=== PATIENT | female | born 1985 | race Caucasian/White ===

== ENCOUNTER 2021-07-09 02:38 | Day surgery (SDC) | payer OTHER, SELFPAY ==
[2021-07-02 13:07] VITALS: BMI 25.1
[2021-07-09 08:42] VITALS: BP 118/80; PULSE 90; RESP 16; TEMP 36.1; O2SAT 100; BMI 33.7
--- NOTE | 2021-07-09 08:52 | PM.HPGS ---
History of Present Illness History of Present Illness Consent: Risks, benefits, and alternatives have been discussed and questions answered. Patient agrees to proceed with procedure. Chief complaint: RICH Narrative: Chelsea Washington is a 35 year old female has been found to have iron deficiency anemia. She was recently in the emergency room where blood work was done. We do not have those results. She denies any abdominal pain or other gastrointestinal symptoms such as nausea, vomiting, severe heartburn, dysphagia anorexia weight loss or significant change in bowel habits. in January hemoglobin is 9.2 when she was in the emergency room with an abscess. A few weeks later was down to 8.3. She was started on iron but has yet to come up. The last 1 I saw was 8.2 . Also, her white blood count was low at 2700. Iron studies were abnormal with iron at 15 with only 6% saturation she denies seeing blood in her stools or having black tarry stools. She does not use NSAIDs. She had been having somewhat heavy periods but throughout all of her 3 pregnancies she had never struggled with anemia. Review of Systems Review of Systems: All systems reviewed & are unremarkable except as noted in HPI and below PMFSH Past Medical History Medical History Anxiety IBS (irritable bowel syndrome) Family History Family History Father Heart disease Diabetes mellitus Skin cancer Mother Diabetes mellitus Hypertension Sibling Heart failure Social History Social History Smoking packs per day: 0.5 Smoking cigarettes per day: 10.0 Years smoked: 3 Smoking pack-years: 1.50 Smoking status: Former smoker Tobacco type: cigarettes Alcohol intake: never Substance use: never Substance use type: does not use Living arrangements: with family Spiritual care concerns: No Meds Home Medications and Allergies Home Medications Medication Instructions Recorded Confirmed Type docusate sodium 100 mg capsule 100 mg PO BID 06/12/21 07/09/21 History ferrous sulfate 142 mg (45 mg 142 mg PO BID tablet 06/12/21 07/09/21 History iron) tablet,extended release sertraline 50 mg tablet 50 mg PO DAILY 06/12/21 07/09/21 History Allergies Allergy/AdvReac Type Severity Reaction Status Date / Time metoclopramide [From Reglan] Allergy Severe Anaphylaxis Verified 07/09/21 08:40 Sulfa (Sulfonamide Allergy Intermediate Unknown Verified 07/09/21 08:40 Antibiotics) Vital Signs Vital Signs - 24 hr 07/09/21 08:42 Temperature 36.1 C L Pulse Rate 90 Respiratory Rate 16 Blood Pressure 118/80 Pulse Oximetry 100 Exam Const: General: alert Orientation/consciousness: patient oriented x3 Resp: Auscultation: clear to auscultation bilaterally Cardio: Rhythm: regular rhythm GI: GI Palp: Yes Soft to palpation and No Tenderness to palpation present (GI) Neuro: General: patient oriented x3 Assessment and Plan Assessment and plan (1) Iron deficiency anemia: Code(s): D50.9 - Iron deficiency anemia, unspecified Status: Acute Assessment and Plan: Colonoscopy with possible biopsy or polypectomy or cautery or injection of substances.
[2021-07-09] MEDS: LACTATED RINGERS 1,000 ML 150 ML IV CONT (08:54)
--- NOTE | 2021-07-09 08:54 | SUR.PREOP ---
Per Dr. Chamberlain no Urine test needed
--- NOTE | 2021-07-09 09:13 | P.PNAN_ITS ---
Anes - Initial Pre Proc Eval Procedure: Operation Date: 07/09/21 10:00 Proposed Procedures p Colonoscopy - Sung Navarro MD Date/Time: 07/09/21 09:13 Surgeon: Sung Navarro MD Pre Op Diagnosis: RICH Patient Data Age: 35 Gender: F Height: 1.55 m Weight: 81.1 kg Last Vital Signs Temp 97 F L 07/09/21 08:42 Pulse 90 07/09/21 08:42 Resp 16 07/09/21 08:42 BP 118/80 07/09/21 08:42 Pulse Ox 100 07/09/21 08:42 Allergies Allergy/AdvReac Type Severity Reaction Status Date / Time metoclopramide [From Reglan] Allergy Severe Anaphylaxis Verified 07/09/21 08:40 Sulfa (Sulfonamide Allergy Intermediate Unknown Verified 07/09/21 08:40 Antibiotics) Home Medications Medication Instructions Recorded Confirmed Type docusate sodium 100 mg capsule 100 mg PO BID 06/12/21 07/09/21 History ferrous sulfate 142 mg (45 mg 142 mg PO BID tablet 06/12/21 07/09/21 History iron) tablet,extended release sertraline 50 mg tablet 50 mg PO DAILY 06/12/21 07/09/21 History Patient hx anesthesia problems: none Family hx anesthesia problems: none Results Review: All pre-operative results and documents have been reviewed as part of the pre-operative evaluation. [facility] Past Medical History Medical History Anxiety IBS (irritable bowel syndrome) Family History Family History Father Heart disease Diabetes mellitus Skin cancer Mother Diabetes mellitus Hypertension Sibling Heart failure Social History Social History Smoking packs per day: 0.5 Smoking cigarettes per day: 10.0 Years smoked: 3 Smoking pack-years: 1.50 Smoking status: Former smoker Tobacco type: cigarettes Alcohol intake: never Substance use: never Substance use type: does not use Living arrangements: with family Spiritual care concerns: No Anes - Eval Final PreProcedure Day of Procedure 07/09/21 09:13 Patient weight: obese Heart: regular rate and rhythm Lungs: clear to auscultation Airway: Mallampati scale class II Neurological: alert and oriented Last oral intake: >/= 8 hours ASA classification: II Emergent: no Anesthetic plan: proceed Anesthesia type and monitoring: general GIVS and standard monitoring Results Review: All pre-operative results and documents have been reviewed as part of the pre-operative evaluation. Informed Consent: The patient's anesthetic plan and its attendant risks and benefits were discussed with the patient/family/POA. Questions were solicited and answers provided to the satisfaction of the patient/family/POA.
[2021-07-09 09:49] VITALS: BP 92/53; PULSE 83; RESP 16; O2SAT 99
[2021-07-09 09:59] VITALS: BP 100/61; PULSE 74; RESP 16; O2SAT 99
[2021-07-09 10:04] VITALS: BP 99/64; PULSE 74; RESP 16; O2SAT 100
== END 2021-07-09 10:28 | disposition home or self-care (01) ==
PROVIDERS: PCP Physician Assistant; Visit Provider Internal Medicine Gastroenterology
PROC: 0DJD8ZZ Inspection of Lower Intestinal Tract, Via Natural or Artificial Opening Endoscopic (ICD-10-PCS; CPT 45378; principal; 2021-07-09 10:00)
DX: D50.9 Iron deficiency anemia, unspecified (principal); K58.9 Irritable bowel syndrome, unspecified; Z87.891 Personal history of nicotine dependence; E66.9 Obesity, unspecified; Z68.33 Body mass index [BMI] 33.0-33.9, adult
CPT/HCPCS: 45378; J2704; J7120